=== PATIENT | female | born 1965 | race Caucasian/White ===

== ENCOUNTER → 2021-10-06 | Outpatient (CLI) | payer BC ==
[~2021-10-06] MED LIST: CELEXA10 MG PO; LEVOTHYROXIN0.025 MG PO; NORCO 325 MG-51 TAB PO; ZYRTEC 10MG10 MG PO
[2021-10-06 09:42] LABS: POTASSIUM 4.5 mmol/L (3.5-5.1)
[2021-10-06 09:43] LABS: ALBUMIN 4.1 g/dL (3.5-5.0)
[2021-10-06 09:45] LABS: TOTAL PROTEIN 6.9 g/dL (6.4-8.3)
[2021-10-06 09:47] LABS: TOTAL BILIRUBIN 0.5 mg/dL (0.2-1.2)
== END ==
LOC: LAB 08:11
PROVIDERS: Family Medicine
DX: Z13.1 Encounter for screening for diabetes mellitus (principal); Z13.220 Encounter for screening for lipoid disorders; E06.3 Autoimmune thyroiditis

== ENCOUNTER → 2021-11-11 | Outpatient (CLI) | payer BC ==
[2021-11-11 09:48] LABS: PH-URINE 7.5 (5.0 - 8.0); URINE APPEARANCE HAZY; URINE COLOR YELLOW
[2021-11-11 09:49] LABS: URINE BILIRUBIN NEGATIVE (NEGATIVE); URINE BLOOD TRACE (NEGATIVE); URINE GLUCOSE NEGATIVE (NEGATIVE); URINE KETONE NEGATIVE (NEGATIVE); URINE LEUKOCYTE ESTERASE 1+ (NEGATIVE); URINE NITRATE NEGATIVE (NEGATIVE); URINE PROTEIN(semi-quant) NEGATIVE (NEGATIVE); URINE UROBILINOGEN NORMAL (NORMAL); URINE WBC 31-50 /hpf (0-3)
== END ==
LOC: LAB 08:50
PROVIDERS: Family Medicine
DX: N39.0 Urinary tract infection, site not specified (principal)

== ENCOUNTER → 2022-03-07 | Outpatient (CLI) | payer BC | LOC: LAB 07:07 | DX: E78.00 Pure hypercholesterolemia, unspecified (principal); R39.15 Urgency of urination ==

== ENCOUNTER → 2022-04-12 | Outpatient (CLI) | payer BC | LOC: MAMMO 15:40 | DX: Z12.31 Encounter for screening mammogram for malignant neoplasm of breast (principal) ==

== ENCOUNTER → 2022-06-05 | Outpatient (CLI) | payer BC ==
[~2022-06-05] MED LIST changes: +ATORVASTATIN CA10 MG PO; +CEPHALEXIN500 M1 PO; +LEVOTHYROXIN0.075 MG PO; +MORGIDOX 1X100100 MG PO
[2022-06-05 08:36] LABS: ALBUMIN 4.1 g/dL (3.5-5.0)
[2022-06-05 08:39] LABS: TOTAL PROTEIN 6.5 g/dL (6.4-8.3)
[2022-06-05 08:40] LABS: TOTAL BILIRUBIN 0.5 mg/dL (0.2-1.2)
[2022-06-05 08:44] LABS: DIRECT BILIRUBIN 0.2 mg/dL (0.0-0.5)
== END ==
LOC: LAB 08:07
PROVIDERS: Family Medicine
DX: N39.0 Urinary tract infection, site not specified (principal); R30.0 Dysuria; R09.89 Other specified symptoms and signs involving the circulatory and respiratory systems; E78.00 Pure hypercholesterolemia, unspecified; S63.501D Unspecified sprain of right wrist, subsequent encounter; X58.XXXD Exposure to other specified factors, subsequent encounter

== ENCOUNTER → 2022-06-07 | Outpatient (CLI) | payer BC ==
[2022-06-07 09:26] LABS: BASO # 0.05 K/mm3 (0.02-0.10); EOS # 0.08 K/mm3 (0.04-0.40); EOS % 0.9 % (1.0-5.0); HEMATOCRIT 42.8 % (37.0-47.0); HEMOGLOBIN 13.7 g/dL (12.5-16.0); MEAN CELL VOLUME 94 fl (78-100); MEAN CORPUSCULAR HEMOGLOBIN 30 pg (27-31); MEAN CORPUSCULAR HGB CONC 32 g/dL (33-37); MEAN PLATELET VOLUME 9.6 fl (7.4-10.4); MONO # 0.45 K/mm3 (0.20-0.80); NEU # 7.32 K/mm3 (1.40-6.50); PLATELET COUNT 217 K/mm3 (130-400); RED BLOOD COUNT 4.55 M/mm3 (4.10-5.30); WHITE BLOOD COUNT 8.8 K/mm3 (4.8-10.8)
[2022-06-07 09:36] LABS: ALBUMIN 4.4 g/dL (3.5-5.0); POTASSIUM 4.2 mmol/L (3.5-5.1)
[2022-06-07 09:37] LABS: CALCIUM 10.7 mg/dL (8.3-10.5)
[2022-06-07 09:38] LABS: TOTAL PROTEIN 7.6 g/dL (6.4-8.3)
[2022-06-07 09:40] LABS: TOTAL BILIRUBIN 0.9 mg/dL (0.2-1.2)
== END ==
LOC: LAB 09:11
PROVIDERS: Nurse Practitioner Family
DX: J34.89 Other specified disorders of nose and nasal sinuses (principal); R22.0 Localized swelling, mass and lump, head

== ENCOUNTER → 2022-06-07 | Outpatient (CLI) | payer BC | LOC: LAB 08:35 | DX: J34.89 Other specified disorders of nose and nasal sinuses (principal); R22.0 Localized swelling, mass and lump, head ==

== ENCOUNTER → 2022-06-07 | Outpatient (CLI) | payer BC | LOC: RAD 10:56 | DX: K11.8 Other diseases of salivary glands (principal); E04.1 Nontoxic single thyroid nodule; R22.0 Localized swelling, mass and lump, head | CPT/HCPCS: Q9967 ==

== ENCOUNTER → 2022-06-09 | Outpatient (CLI) | payer BC ==
[2022-06-09 08:28] LABS: BASO # 0.05 K/mm3 (0.02-0.10); EOS # 0.23 K/mm3 (0.04-0.40); EOS % 6.8 % (1.0-5.0); HEMATOCRIT 36.5 % (37.0-47.0); HEMOGLOBIN 11.8 g/dL (12.5-16.0); LYMPH# 1.36 K/mm3 (1.50-4.00); MEAN CELL VOLUME 94 fl (78-100); MEAN CORPUSCULAR HEMOGLOBIN 31 pg (27-31); MEAN CORPUSCULAR HGB CONC 32 g/dL (33-37); MEAN PLATELET VOLUME 9.8 fl (7.4-10.4); MONO # 0.29 K/mm3 (0.20-0.80); NEU # 1.44 K/mm3 (1.40-6.50); PLATELET COUNT 225 K/mm3 (130-400); RED BLOOD COUNT 3.87 M/mm3 (4.10-5.30); RED CELL DISTRIBUTION WIDTH 12.6 % (11.5-14.5); WHITE BLOOD COUNT 3.4 K/mm3 (4.8-10.8)
[2022-06-09 08:38] LABS: ALBUMIN 3.8 g/dL (3.5-5.0); POTASSIUM 3.9 mmol/L (3.5-5.1)
[2022-06-09 08:41] LABS: TOTAL PROTEIN 6.7 g/dL (6.4-8.3)
[2022-06-09 08:43] LABS: TOTAL BILIRUBIN 0.4 mg/dL (0.2-1.2)
== END ==
LOC: LAB 08:05
PROVIDERS: Family Medicine
DX: L03.211 Cellulitis of face (principal)

== ENCOUNTER → 2022-06-14 | Outpatient (CLI) | payer BC | LOC: RAD 09:35 | DX: E04.1 Nontoxic single thyroid nodule (principal) ==

== ENCOUNTER → 2022-06-14 | Outpatient (CLI) | payer BC | LOC: LAB 09:29 | DX: L03.211 Cellulitis of face (principal); E04.1 Nontoxic single thyroid nodule; K11.9 Disease of salivary gland, unspecified ==

== ENCOUNTER 2022-06-15 08:45 | Outpatient (RCR) | payer BC ==
[~2022-06-15] VITALS: Ht 157.5 cm; Wt 64.5 kg
[2022-06-15 10:11] VITALS: BP 137/84; BP 145/86
== END 2022-06-28 | disposition still patient (30) ==
LOC: AMSURD
DX: Z79.899 Other long term (current) drug therapy (principal)
CPT/HCPCS: J0696; J3370; J7050

== ENCOUNTER → 2023-05-31 | Outpatient (CLI) | payer OTHER | LOC: LAB 16:32 | DX: N39.0 Urinary tract infection, site not specified (principal) ==

== ENCOUNTER → 2023-08-24 | Outpatient (CLI) | payer BC | LOC: LAB 16:01 | DX: N39.0 Urinary tract infection, site not specified (principal) ==

== ENCOUNTER → 2023-08-31 | Outpatient (CLI) | payer BC | LOC: LAB 16:22 | DX: E06.3 Autoimmune thyroiditis (principal); E78.2 Mixed hyperlipidemia ==

== ENCOUNTER 2023-09-21 10:30 | Outpatient (RCR) | payer BC ==
[2023-09-18 11:11] VITALS: BP 95/67
[2023-09-19 11:06] VITALS: BP 111/73
[2023-09-20 11:02] VITALS: BP 115/73
[~2023-09-21] VITALS: Ht 157.5 cm; Wt 61.0 kg
[~2023-09-21 10:30] MED LIST changes: +SEPTRA DS 8001 TAB PO; +ZOFRAN ODT4 MG PO
[2023-09-21 10:40] VITALS: BP 134/80
== END 2023-09-27 | disposition home or self-care (01) ==
LOC: AMSURD
DX: L03.012 Cellulitis of left finger (principal)
CPT/HCPCS: J0696

== ENCOUNTER → 2024-03-07 | Outpatient (CLI) | payer BC ==
[2024-03-07 15:52] LABS: BASO # 0.04 K/mm3 (0.02-0.10); EOS # 0.21 K/mm3 (0.04-0.40); EOS % 5.1 % (1.0-5.0); HEMATOCRIT 39.4 % (37.0-47.0); HEMOGLOBIN 12.7 g/dL (12.5-16.0); LYMPH# 1.64 K/mm3 (1.50-4.00); MEAN CELL VOLUME 97 fl (78-100); MEAN CORPUSCULAR HEMOGLOBIN 31 pg (27-31); MEAN CORPUSCULAR HGB CONC 32 g/dL (33-37); MEAN PLATELET VOLUME 10.3 fl (7.4-10.4); MONO # 0.27 K/mm3 (0.20-0.80); NEU # 1.93 K/mm3 (1.40-6.50); PLATELET COUNT 214 K/mm3 (130-400); RED BLOOD COUNT 4.07 M/mm3 (4.10-5.30); WHITE BLOOD COUNT 4.1 K/mm3 (4.8-10.8)
[2024-03-07 15:57] LABS: ALBUMIN 4.3 g/dL (3.5-5.0)
[2024-03-07 16:00] LABS: TOTAL PROTEIN 6.6 g/dL (6.4-8.3)
[2024-03-07 16:01] LABS: TOTAL BILIRUBIN 0.4 mg/dL (0.2-1.2)
[2024-03-07 23:35] LABS: HEPATITIS C VIRUS ANTIBODY Negative (Nonreactiv)
== END ==
LOC: LAB 15:20
PROVIDERS: Family Medicine
DX: Z11.59 Encounter for screening for other viral diseases (principal); Z11.4 Encounter for screening for human immunodeficiency virus [HIV]; E06.3 Autoimmune thyroiditis; D64.89 Other specified anemias

== ENCOUNTER 2024-09-15 01:12 | Emergency (ER) | payer OTHER ==
[~2024-09-15] VITALS: Ht 157.5 cm; Wt 59.1 kg
[2024-09-15 02:43] LABS: BASO # 0.01 K/mm3 (0.02-0.10); EOS # 0.15 K/mm3 (0.04-0.40); EOS % 1.1 % (1.0-5.0); HEMATOCRIT 41.7 % (37.0-47.0); HEMOGLOBIN 13.6 g/dL (12.5-16.0); LYMPH# 2.11 K/mm3 (1.50-4.00); MEAN CELL VOLUME 96 fl (78-100); MEAN CORPUSCULAR HEMOGLOBIN 31 pg (27-31); MEAN CORPUSCULAR HGB CONC 33 g/dL (33-37); MEAN PLATELET VOLUME 9.6 fl (7.4-10.4); MONO # 0.88 K/mm3 (0.20-0.80); NEU # 10.56 K/mm3 (1.40-6.50); PLATELET COUNT 283 K/mm3 (130-400); RED BLOOD COUNT 4.34 M/mm3 (4.10-5.30); RED CELL DISTRIBUTION WIDTH 12.9 % (11.5-14.5); WHITE BLOOD COUNT 13.8 K/mm3 (4.8-10.8)
[2024-09-15 02:53] LABS: ALBUMIN 3.6 g/dL (3.4-4.8)
[2024-09-15 02:54] LABS: CALCIUM 9.6 mg/dL (8.3-10.5)
[2024-09-15 02:55] LABS: TOTAL PROTEIN 6.1 g/dL (6.2-8.1)
[2024-09-15 02:57] LABS: TOTAL BILIRUBIN 0.5 mg/dL (0.2-1.2)
[2024-09-15] MEDS ORDERED: Azithromycin 200 MG/5 ML Oral Susp 22.5 ML BOTTLE PO ONE (03:45)
[2024-09-15] MEDS ORDERED: cefTRIAXone 1 G in Water For Injection,Sterile 10 ML IV ONE (03:45)
[2024-09-15] MEDS ORDERED: cefTRIAXone 1 G,Lidocaine 2.1 ML IM ONE (03:45)
[2024-09-15] MEDS ORDERED: Lidocaine 2% Viscous 15 ML UNIT DOSE CUP MM ONE (04:00)
[2024-09-15] MEDS ORDERED: Azithromycin 250 MG TAB PO ONE (04:00)
[2024-09-15] MEDS ORDERED: Mag/Al Hydrox/Simeth Susp 30 ML CUP PO ONE (04:00)
[2024-09-15 04:10] LABS: URINE APPEARANCE CLOUDY (CLEAR); URINE BILIRUBIN NEGATIVE (NEGATIVE); URINE BLOOD NEGATIVE (NEGATIVE); URINE COLOR YELLOW (YELLOW); URINE GLUCOSE NEGATIVE (NEGATIVE); URINE KETONE NEGATIVE (NEGATIVE); URINE LEUKOCYTE ESTERASE NEGATIVE (NEGATIVE); URINE NITRATE NEGATIVE (NEGATIVE); URINE PROTEIN(semi-quant) NEGATIVE (NEGATIVE); URINE WBC 0-1 /hpf (0-3)
[2024-09-15] MEDS ORDERED: ZITHROMAX 250M250 MG PO (04:25)
[2024-09-15 04:39] VITALS: BP 139/86
== END 2024-09-15 04:44 | disposition home or self-care (01) ==
LOC: ED 01:12
PROVIDERS: Physician Assistant
DX: R07.89 Other chest pain (principal); R51.9 Headache, unspecified; D72.829 Elevated white blood cell count, unspecified; Z88.0 Allergy status to penicillin
CPT/HCPCS: J0696

== ENCOUNTER → 2024-09-24 | Outpatient (CLI) | payer OTHER ==
[~2024-09-24] MED LIST changes: +ZITHROMAX 250M250 MG PO
== END ==
LOC: RAD 10:26
DX: R10.11 Right upper quadrant pain (principal)

== ENCOUNTER 2024-10-16 15:30 | Emergency (ER) | payer OTHER ==
[~2024-10-16] VITALS: Ht 157.5 cm; Wt 45.5 kg
[2024-10-16] MEDS ORDERED: LEVOTHYROXIN0.088 MG PO (15:43)
[2024-10-16 17:39] VITALS: BP 157/93
== END 2024-10-16 17:42 | disposition home or self-care (01) ==
LOC: ED 15:30
DX: S92.421A Displaced fracture of distal phalanx of right great toe, initial encounter for closed fracture (principal); W20.8XXA Other cause of strike by thrown, projected or falling object, initial encounter; Y92.89 Other specified places as the place of occurrence of the external cause; Y99.0 Civilian activity done for income or pay
CPT/HCPCS: L4386